=== PATIENT | male | born 1950 | race Two or more races ===

== ENCOUNTER 2021-12-23 16:03 | Emergency (ER) | payer SELFPAY ==
[~2021-12-23] VITALS: Ht 165.1 cm; Wt 89.0 kg
[2021-12-23] MEDS ORDERED: MAGNESIUM/ALUMINUM HYDROXIDE/SIMETHICONE 30ML UDC PO ONE (16:15)
[2021-12-23] MEDS ORDERED: ASPIRIN 81MG TABLET PO ONE (16:15)
[2021-12-23] MEDS ORDERED: VISCOUS LIDOCAINE 2% 15 ML UDC PO ONE (16:15)
[2021-12-23 18:06] LABS: BASOPHILS % 0.4 % (0.0-2.0); EOSINOPHILS % 2.6 % (0.0-5.0); HEMATOCRIT. 44.7 % (42.0-52.0); HEMOGLOBIN. 15.5 g/dL (14.0-18.0); LYMPHOCYTES % 15.6 % (20.0-50.0); MEAN CORPUSCULAR HEMOGLOBIN 33.2 pg (28.0-32.0); MEAN CORPUSCULAR VOLUME 95.5 fL (80.0-94.0); MEAN PLATELET VOLUME 8.5 fl (7.4-10.4); MONOCYTES % 7.6 % (2.0-8.0); NEUTROPHILS % 73.8 % (40.0-76.0); PLATELET 143 x1000/uL (130-400); RED BLOOD CELL COUNT 4.68 mill/uL (4.7-6.1); RED CELL DISTRIBUTION WIDTH 13.5 % (11.6-14.6)
[2021-12-23 18:11] LABS: CHLORIDE 104 mEq/L (98-107)
[2021-12-23 23:21] VITALS: BP 164/63
[2021-12-23] MEDS ORDERED: MAGNESIUM/ALUMINUM HYDROXIDE/SIMETHICONE 30ML UDC PO NR (23:30)
[2021-12-23] MEDS ORDERED: VISCOUS LIDOCAINE 2% 15 ML UDC PO NR (23:30)
[2021-12-23] MEDS ORDERED: ASPIRIN 81MG TABLET PO NR (23:30)
== END 2021-12-23 23:51 | disposition home or self-care (01) ==
LOC: ER 16:03
DX: K85.90 Acute pancreatitis without necrosis or infection, unspecified (principal); R07.89 Other chest pain; I10 Essential (primary) hypertension; E11.9 Type 2 diabetes mellitus without complications; E78.00 Pure hypercholesterolemia, unspecified
CPT/HCPCS: 36415; 71045; 80053; 83880; 84484; 85025; 93005; 99285